=== PATIENT | female | born 1990 | race American Indian/Alaskan Native ===

== ENCOUNTER 2018-03-01 12:15 | Inpatient (IN) | payer OTHER, MEDICAID ==
[2018-03-01] MEDS: Sodium Chloride 0.9% 10 ML Syringe FLUSH PRN (13:12)
[2018-03-01 13:17] LABS: CHLORIDE,CL 98 mmol/L (101-111); SODIUM,NA 131 mmol/L (135-145)
[2018-03-01] MEDS ORDERED: Morphine 2 MG/ML Syringe IVPUSH ONE (13:36)
[2018-03-01] MEDS ORDERED: Ondansetron 4 MG/2 ML SDV IV ONE (13:36)
[2018-03-01] MEDS ORDERED: Iopamidol 755 Mg/ML 100 ML Bottle IVPUSH ONE (13:36)
[2018-03-01] MEDS ORDERED: Morphine 4 MG/ML Syringe ONE (13:39)
[2018-03-01] MEDS ORDERED: Sodium Chloride 0.9% 1,000 ML IV ONE (13:46)
[2018-03-01] MEDS ORDERED: Midazolam 1 MG/ML 2 ML SDV IVPUSH ONE (13:59)
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
[2018-03-01] MEDS ORDERED: Ondansetron 4 MG Tab.DIS PO PRN (15:28)
[2018-03-01] MEDS: Albuterol/Ipratropium 3.0-0.5 MG/3 ML Neb Soln NEB SCH (16:06)
--- NOTE | 2018-03-01 16:14 | HP ---
CHIEF COMPLAINT: Fever and chills and right-sided chest and abdominal pain. HISTORY OF PRESENT ILLNESS: The patient is a 27-year-old female who is admitted through the Emergency Room because she has been complaining of right-sided chest/shoulder and right-sided abdominal pain that have been going on for the last 2 days and she mentioned that she woke up with it. She admits that she is a little bit short of breath and also had some fever and chills. She denies though any diarrhea. Denies any headache, vomiting, nor any other associated symptoms, and because of this, she came into the Emergency Room. She was evaluated and she had significantly elevated D-dimer and she had a CAT scan of the chest, PE study, and this did not show any pulmonary embolism, but it showed bilateral lower lobe infiltrates/atelectasis/pneumonia. Urinalysis all showing urinary tract infection, and because of this, she was then admitted for further evaluation and management. PAST MEDICAL HISTORY: Remarkable for chronic anemia, otherwise unremarkable. FAMILY HISTORY: Noncontributory. SOCIAL HISTORY: The patient admits that she smokes cigarettes and also some marijuana, but denies any illicit drug use and denies any alcohol abuse. REVIEW OF SYSTEMS: As in HPI. The rest of the review of systems is negative. HOME MEDICATIONS: None. PHYSICAL EXAMINATION: General: The patient is alert and oriented, in [id number] distress from the shoulder pain and right-sided abdominal pain. Vital Signs: Blood pressure is 97/71, pulse of 109, respirations of 24. HEENT: There are pale palpebral conjunctivae. Sclerae anicteric. No JVD. No lymphadenopathy. Heart: Regular. Slightly tachycardic, but no gallops, no rubs, no significant murmurs. Lungs: Diminished breath sounds on both bases with faint crackles in both lower lung jalloh. No wheezing. Abdomen: Soft. There is moderate direct tenderness diffusely. No rebound. Extremities: Negative for any calf tenderness. No significant pedal edema. No signs of cellulitis. LABORATORY DATA: CBC: WBC 18, hemoglobin is 9.2, hematocrit is 31.1, platelet is 294. D-dimer is 2140. Comprehensive Metabolic Panel: Sodium is 131, chloride of 98, glucose is 110. The rest of the panel is unremarkable. Urinalysis is remarkable for positive nitrite and 20 to 30 wbc's and many bacteria. Urine drug screen is positive for opiates and oxycodone and methamphetamine. CAT scan of the chest, abdomen, and pelvis showed generalized poor inspiratory effort with bilateral lower lobe atelectasis/infiltrates, but not thrombus noted. There is some free fluid in the dependent cul-de-sac. No abdominal mass, lesion, retroperitoneal lymphadenopathy, mechanical bowel obstruction, or free air. ADMITTING DIAGNOSES: 1. Systemic inflammatory response syndrome. 2. Bilateral lower lobe pneumonia. 3. Urinary tract infection. 4. Hyponatremia and hypochloremia. TREATMENT PLAN: The patient is going to be admitted to General Medicine Floor. She will be started empirically on IV antibiotics, IV Levaquin. She will be given IV fluids. Blood cultures will be sent as well as urine culture. The rest of the management as necessary. [facility] /[id number]
[2018-03-01] MEDS: Acetaminophen/oxyCODONE 325-5 MG Tab PO PRN ×2 (16:31→21:37)
[2018-03-01] MEDS: Levofloxacin/Dextrose 5%-Water 500 MG in Premix Bag 1 BAG IV SCH (16:32)
[2018-03-01] MEDS: Sodium Chloride 0.9% 1,000 ML IV SCH (19:30)
[2018-03-01] MEDS: Ibuprofen 200 MG Tab PO PRN (20:09)
[2018-03-02] MEDS: Acetaminophen/oxyCODONE 325-5 MG Tab PO PRN ×6 (02:19→23:32)
[2018-03-02] MEDS: Albuterol/Ipratropium 3.0-0.5 MG/3 ML Neb Soln NEB SCH ×4 (03:38→22:45)
[2018-03-02] MEDS: Sodium Chloride 0.9% 1,000 ML IV SCH (03:56)
[2018-03-02] MEDS: Ibuprofen 200 MG Tab PO PRN ×3 (04:12→20:52)
[2018-03-02 07:10] LABS: ANION GAP 9.5; CHLORIDE,CL 106 mmol/L (101-111); SODIUM,NA 137 mmol/L (135-145)
[2018-03-02] MEDS: Enoxaparin 40 MG/0.4 ML Syringe SUBCUT SCH (09:20)
[2018-03-02] MEDS ORDERED: Potassium Chloride 10 MEQ Tab.ER PO ONE (13:47)
[2018-03-02] MEDS: Levofloxacin/Dextrose 5%-Water 500 MG in Premix Bag 1 BAG IV SCH (15:45)
[2018-03-03] MEDS: Acetaminophen/oxyCODONE 325-5 MG Tab PO PRN ×2 (06:10→10:32)
[2018-03-03] MEDS: Albuterol/Ipratropium 3.0-0.5 MG/3 ML Neb Soln NEB SCH ×2 (07:27→15:12)
[2018-03-03] MEDS: Ibuprofen 200 MG Tab PO PRN (08:07)
[2018-03-03] MEDS: Enoxaparin 40 MG/0.4 ML Syringe SUBCUT SCH (08:09)
[2018-03-03 08:23] LABS: ANION GAP 10.8; CHLORIDE,CL 105 mmol/L (101-111); SODIUM,NA 136 mmol/L (135-145)
[2018-03-03] MEDS: Sodium Chloride 0.9% 10 ML Syringe FLUSH PRN (08:53)
[2018-03-03] MEDS: Piperacillin/Tazobactam 3.375 GM in Sodium Chloride 0.9% 100 ML IV SCH ×2 (08:54→14:05)
--- NOTE | 2018-03-03 09:11 | PN ---
DATE: 03/02/2018 SUBJECTIVE: Ms. Estevez is a 27-year-old female seen today for continued hospitalization. The patient was admitted because of bilateral pneumonia and urinary tract infection. She continues to cough but nonproductive. She still has some right-sided pain which correlates with the findings of the pneumonia. Able to tolerate meals. No nausea. No diarrhea. OBJECTIVE: Vital Signs: Latest blood pressure 103/48, heart rate of 90 beats per minute, respirations 18 breaths per minute, oxygenation 100%, and temperature 98.8. General Appearance: Awake, in distress. Chest: Symmetric chest expansion. Lungs: Bilateral air entry. Decreased breath sounds in the right lower base. Abdomen: Soft. Normoactive bowel sounds. Extremities: No edema. Good pulses. LABORATORY DATA: Reviewed. ASSESSMENT AND PLAN: Given the sudden drop of the hemoglobin, also there is a drop of the WBC and platelets, repeat a CBC, most likely dilutional. The patient reports history of anemia in the past, unsure as to the cause. LMP was around 3 to 4 weeks ago. It is still in the anemic side, we will workup for the anemia. For the hypokalemia, replace the potassium with K-Dur at one time. Repeat potassium. For the bilateral pneumonia, we will continue with IV Levaquin and await final urine culture. We will also have the patient to do incentive spirometry. We will continue to follow up the patient in the medical- surgical bed. [facility] /[id number]
[2018-03-03 14:38] VITALS: BP 120/83
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
== END 2018-03-03 15:45 | disposition home or self-care (01) | DRG 871 ==
LOC: DL.ED 12:15 → UNDOADMIN 15:03 → DL.MS 15:03
PROVIDERS: ADMIT Internal Medicine; ATTEND Internal Medicine
DX: A41.9 Sepsis, unspecified organism (principal); J18.9 Pneumonia, unspecified organism; N39.0 Urinary tract infection, site not specified; E87.1 Hypo-osmolality and hyponatremia; E87.8 Other disorders of electrolyte and fluid balance, not elsewhere classified; E11.9 Type 2 diabetes mellitus without complications; D63.8 Anemia in other chronic diseases classified elsewhere; F17.210 Nicotine dependence, cigarettes, uncomplicated; E87.6 Hypokalemia; F15.90 Other stimulant use, unspecified, uncomplicated; Z79.899 Other long term (current) drug therapy; Z98.1 Arthrodesis status; F12.90 Cannabis use, unspecified, uncomplicated; B96.20 Unspecified Escherichia coli [E. coli] as the cause of diseases classified elsewhere
CPT/HCPCS: 36415; 71260; 74177; 80053; 80305; 81001; 81025; 82150; 83690; 85025; 85379; 87086; 87088; 87186; 96361; 96374; 96375; 99285; G0480; J2250; J2270; J2405; J7030; J7050; Q9967 ×2; 80048; 82728; 83540; 83550; 87040; 94640; 94760; 99284; A9270-GY; J1650; J1956; J2543; J7620-GY

== ENCOUNTER 2019-03-09 20:46 | Emergency (ER) | payer MEDICAID, OTHER ==
[2019-03-09 21:36] LABS: ANION GAP 12.2; CHLORIDE,CL 107 mmol/L (101-111); SODIUM,NA 139 mmol/L (135-145)
[2019-03-09] MEDS: Ondansetron 4 MG/2 ML SDV IV ONE (22:03)
[2019-03-09] MEDS: HYDROmorphone 1 MG/ML Syringe IVPUSH ONE (22:03)
[2019-03-09] MEDS: LORazepam 0.5 MG Tab PO ONE (22:08)
[2019-03-09] MEDS: HYDROmorphone 1 MG/ML Syringe IM ONE (22:09)
[2019-03-09] MEDS: Ondansetron 4 MG Tab.DIS PO ONE (22:09)
[2019-03-09 23:07] VITALS: BP 117/74
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
== END 2019-03-09 23:27 | disposition home or self-care (01) ==
LOC: DL.ED 20:46
DX: S00.83XA Contusion of other part of head, initial encounter (principal); M54.6 Pain in thoracic spine; Y04.2XXA Assault by strike against or bumped into by another person, initial encounter
CPT/HCPCS: 36415; 70450; 70480; 72125; 72128; 80053; 80305-QW; 84703; 85025; 96372; 99284-25; A9270-GY; G0480; J1170

== ENCOUNTER 2019-04-24 14:59 | Inpatient (IN) | payer MEDICAID, OTHER ==
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
[2019-04-24] MEDS ORDERED: Sodium Chloride 0.9% 10 ML Syringe FLUSH PRN ×2 (15:08→15:15)
[2019-04-24] MEDS ORDERED: Morphine 4 MG/ML Syringe IVPUSH ONE (15:09)
[2019-04-24] MEDS ORDERED: Lactated Ringers 1,000 ML IV ONE (15:09)
[2019-04-24] MEDS ORDERED: Ondansetron 4 MG/2 ML SDV IV ONE (15:09)
[2019-04-24] MEDS ORDERED: Acetaminophen 325 MG Tab PO ONE (15:10)
[2019-04-24] MEDS ORDERED: diphenhydrAMINE 50 MG/ML SDV IVPUSH ONE (15:14)
[2019-04-24] MEDS ORDERED: Meropenem Premix 1 GM in Premix Bag 1 BAG IV ONE (15:21)
[2019-04-24 16:36] LABS: ANION GAP 12.3; CHLORIDE,CL 98 mmol/L (101-111); SODIUM,NA 130 mmol/L (135-145)
[2019-04-24] MEDS ORDERED: Iopamidol 612 MG/ML 100 ML Bottle IVPUSH ONE (16:49)
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
[2019-04-24] MEDS: Acetaminophen 325 MG Tab PO PRN (20:12)
[2019-04-24] MEDS: Piperacillin/Tazobactam 4.5 GM in Sodium Chloride 0.9% 100 ML IV SCH (20:12)
[2019-04-24] MEDS: Lactated Ringers 1,000 ML IV SCH (20:13)
[2019-04-24] MEDS: Ibuprofen 600 MG Tab PO PRN (21:46)
[2019-04-25] MEDS: Piperacillin/Tazobactam 4.5 GM in Sodium Chloride 0.9% 100 ML IV SCH ×5 (01:59→23:31)
[2019-04-25] MEDS: Lactated Ringers 1,000 ML IV SCH ×2 (04:15→17:11)
[2019-04-25] MEDS: Pantoprazole 40 MG Tab.CR PO SCH (06:29)
[2019-04-25] MEDS: Ibuprofen 600 MG Tab PO PRN ×3 (06:32→22:11)
[2019-04-25] MEDS: Acetaminophen 325 MG Tab PO PRN ×3 (06:32→18:27)
[2019-04-25 07:53] LABS: ANION GAP 11.6; CHLORIDE,CL 103 mmol/L (101-111); SODIUM,NA 138 mmol/L (135-145)
[2019-04-25] MEDS: Potassium Chloride 10 MEQ Tab.ER PO SCH ×2 (09:55→17:10)
[2019-04-25] MEDS ORDERED: Piperacillin/Tazobactam 4.5 GM in Sodium Chloride 0.9% 100 ML IV SCH (09:56)
[2019-04-25] MEDS: Enoxaparin 40 MG/0.4 ML Syringe SUBCUT SCH (09:58)
--- NOTE | 2019-04-25 10:12 | PCM.PN ---
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 She presented to the ED via EMS c/o tender swelling, redness to the RLE. She was admitted for extensive cellulitis to RLE. CT of the RLE was negative for necrotizing fascitis but was showed extensive cellulitis. patient received IV Vanco in the ED. She was started on broad spectrum abx. This morning patient was seen and examined. She reports pain to the RLE. She thinks she the RLE redness and swelling is better. She denies fever and chills. No N/V. Over night blisters had developed over the RLE close to te ankles. Functional Status: Reports: Pain Controlled - Review of Systems General: Reports: No Symptoms HEENT: Reports: No Symptoms Pulmonary: Reports: No Symptoms Cardiovascular: Reports: No Symptoms Gastrointestinal: Reports: No Symptoms Genitourinary: Reports: No Symptoms Skin: Reports: No Symptoms, Other (Redness, swelling to RLE improving. Still c/ o pain. ) Neurological: Reports: No Symptoms Psychiatric: Reports: No Symptoms - Patient Data Vitals - Most Recent: Last Vital Signs Temp 98.4 F 04/25/19 07:48 Pulse 80 04/25/19 07:48 Resp 18 04/25/19 07:48 BP 97/48 L 04/25/19 07:48 Pulse Ox 100 04/25/19 07:48 Weight - Most Recent: 185 lb 8 oz I&O - Last 24 Hours: Intake & Output 04/24/19 04/25/19 04/25/19 22:59 06:59 14:59 Intake Total 350 Balance 350 Lab Results Last 24 Hours: Laboratory Results - last 24 hr 04/24/19 04/24/19 04/24/19 Range/Units 15:58 15:58 15:58 WBC 7.0 (5.0-10.0) 10^3/uL RBC 4.43 (4.2-5.4) 10^6/uL Hgb 9.7 L (12.0-16.0) g/dL Hct 30.9 L (37.0-47.0) % MCV 69.8 L (80-100) fL MCH 21.9 L (27.0-34.0) pg MCHC 31.4 L (33.0-35.0) g/dL Plt Count 184 D (150-450) 10^3/uL Neut % (Auto) 77.3 H (42.2-75.2) % Lymph % (Auto) 13.6 L (20.5-50.1) % [place] % (Auto) 8.9 H (2-8) % Eos % (Auto) 0.1 L (1.0-3.0) % Baso % (Auto) 0.1 (0.0-1.0) % Sodium 130 L (135-145) mmol/L Potassium 3.3 L (3.6-5.0) mmol/L Chloride 98 L (101-111) mmol/L Carbon Dioxide 23.0 (21.0-31.0) mmol/L Anion Gap 12.3 BUN 8 (7-18) mg/dL Creatinine 0.4 L (0.6-1.3) mg/dL Est Cr Clr Drug Dosing 180.81 mL/min Estimated GFR (MDRD) > 60 BUN/Creatinine Ratio 20.00 Glucose 106 H (74-105) mg/dL Lactic Acid 0.9 (0.5-2.2) mmol/L Calcium 8.2 L (8.4-10.2) mg/dl Total Bilirubin 0.6 (0.2-1.0) mg/dL AST 21 (10-42) IU/L ALT 27 (10-60) IU/L Alkaline Phosphatase 87 (42-121) IU/L C-Reactive Protein (0.0-1.3) mg/dL Total Protein 7.6 (6.7-8.2) g/dl Albumin 3.0 L (3.2-5.5) g/dl Globulin 4.6 Albumin/Globulin Ratio 0.65 HCG, Qual Urine Color (YELLOW) Urine Appearance (CLEAR) Urine pH (5.0-9.0) Ur Specific Oto (1.005-1.030) Urine Protein (NEGATIVE) Urine Glucose (UA) (NEGATIVE) Urine Ketones (NEGATIVE) Urine Occult Blood (NEGATIVE) Urine Nitrite (NEGATIVE) Urine Bilirubin (NEGATIVE) Urine Urobilinogen (0.2-1.0) mg/dL Ur Leukocyte Esterase (NEGATIVE) Urine RBC /HPF Urine WBC (0-5/HPF) /HPF Ur Epithelial Cells (NOT SEEN) /HPF Urine Bacteria (0-FEW/HPF) /HPF Urine Opiates Screen (NEGATIVE) Ur Oxycodone Screen (NEGATIVE) Urine Methadone Screen (NEGATIVE) Ur Barbiturates Screen (NEGATIVE) U Tricyclic Antidepress (NEGATIVE) Ur Phencyclidine Scrn (NEGATIVE) Ur Amphetamine Screen (NEGATIVE) U Methamphetamines Scrn (NEGATIVE) Urine MDMA Screen (NEGATIVE) U Benzodiazepines Scrn (NEGATIVE) Urine Cocaine Screen (NEGATIVE) U Marijuana (THC) Screen (NEGATIVE) 04/24/19 04/24/19 04/24/19 Range/Units 15:58 15:58 18:34 WBC (5.0-10.0) 10^3/uL RBC (4.2-5.4) 10^6/uL Hgb (12.0-16.0) g/dL Hct (37.0-47.0) % MCV (80-100) fL MCH (27.0-34.0) pg MCHC (33.0-35.0) g/dL Plt Count (150-450) 10^3/uL Neut % (Auto) (42.2-75.2) % Lymph % (Auto) (20.5-50.1) % [place] % (Auto) (2-8) % Eos % (Auto) (1.0-3.0) % Baso % (Auto) (0.0-1.0) % Sodium (135-145) mmol/L Potassium (3.6-5.0) mmol/L Chloride (101-111) mmol/L Carbon Dioxide (21.0-31.0) mmol/L Anion Gap BUN (7-18) mg/dL Creatinine (0.6-1.3) mg/dL Est Cr Clr Drug Dosing mL/min Estimated GFR (MDRD) BUN/Creatinine Ratio Glucose (74-105) mg/dL Lactic Acid (0.5-2.2) mmol/L Calcium (8.4-10.2) mg/dl Total Bilirubin (0.2-1.0) mg/dL AST (10-42) IU/L ALT (10-60) IU/L Alkaline Phosphatase (42-121) IU/L C-Reactive Protein 19.1 H (0.0-1.3) mg/dL Total Protein (6.7-8.2) g/dl Albumin (3.2-5.5) g/dl Globulin Albumin/Globulin Ratio HCG, Qual Negative Urine Color (YELLOW) Urine Appearance (CLEAR) Urine pH (5.0-9.0) Ur Specific Oto (1.005-1.030) Urine Protein (NEGATIVE) Urine Glucose (UA) (NEGATIVE) Urine Ketones (NEGATIVE) Urine Occult Blood (NEGATIVE) Urine Nitrite (NEGATIVE) Urine Bilirubin (NEGATIVE) Urine Urobilinogen (0.2-1.0) mg/dL Ur Leukocyte Esterase (NEGATIVE) Urine RBC /HPF Urine WBC (0-5/HPF) /HPF Ur Epithelial Cells (NOT SEEN) /HPF Urine Bacteria (0-FEW/HPF) /HPF Urine Opiates Screen Positive H (NEGATIVE) Ur Oxycodone Screen Negative (NEGATIVE) Urine Methadone Screen Negative (NEGATIVE) Ur Barbiturates Screen Negative (NEGATIVE) U Tricyclic Antidepress Negative (NEGATIVE) Ur Phencyclidine Scrn Negative (NEGATIVE) Ur Amphetamine Screen Positive H (NEGATIVE) U Methamphetamines Scrn Positive H (NEGATIVE) Urine MDMA Screen Negative (NEGATIVE) U Benzodiazepines Scrn Negative (NEGATIVE) Urine Cocaine Screen Negative (NEGATIVE) U Marijuana (THC) Screen Negative (NEGATIVE) 04/24/19 04/24/19 04/25/19 Range/Units 18:38 19:32 07:20 WBC 6.5 (5.0-10.0) 10^3/uL RBC 4.09 L (4.2-5.4) 10^6/uL Hgb 9.0 L (12.0-16.0) g/dL Hct 28.6 L (37.0-47.0) % MCV 69.9 L (80-100) fL MCH 22.0 L (27.0-34.0) pg MCHC 31.5 L (33.0-35.0) g/dL Plt Count 150 (150-450) 10^3/uL Neut % (Auto) 68.4 (42.2-75.2) % Lymph % (Auto) 17.2 L (20.5-50.1) % [place] % (Auto) 9.6 H (2-8) % Eos % (Auto) 4.6 H (1.0-3.0) % Baso % (Auto) 0.2 (0.0-1.0) % Sodium 138 (135-145) mmol/L Potassium 3.6 (3.6-5.0) mmol/L Chloride 103 (101-111) mmol/L Carbon Dioxide 27.0 (21.0-31.0) mmol/L Anion Gap 11.6 BUN 10 (7-18) mg/dL Creatinine 0.5 L (0.6-1.3) mg/dL Est Cr Clr Drug Dosing 144.65 mL/min Estimated GFR (MDRD) > 60 BUN/Creatinine Ratio Glucose 106 H (74-105) mg/dL Lactic Acid (0.5-2.2) mmol/L Calcium 8.0 L (8.4-10.2) mg/dl Total Bilirubin (0.2-1.0) mg/dL AST (10-42) IU/L ALT (10-60) IU/L Alkaline Phosphatase (42-121) IU/L C-Reactive Protein (0.0-1.3) mg/dL Total Protein (6.7-8.2) g/dl Albumin (3.2-5.5) g/dl Globulin Albumin/Globulin Ratio HCG, Qual Urine Color Yellow (YELLOW) Urine Appearance Cloudy (CLEAR) Urine pH 6.0 (5.0-9.0) Ur Specific Oto 1.025 (1.005-1.030) Urine Protein 100 H (NEGATIVE) Urine Glucose (UA) Negative (NEGATIVE) Urine Ketones Negative (NEGATIVE) Urine Occult Blood Small H (NEGATIVE) Urine Nitrite Negative (NEGATIVE) Urine Bilirubin Negative (NEGATIVE) Urine Urobilinogen 4.0 H (0.2-1.0) mg/dL Ur Leukocyte Esterase Small H (NEGATIVE) Urine RBC 5-10 H /HPF Urine WBC >100 H (0-5/HPF) /HPF Ur Epithelial Cells Moderate H (NOT SEEN) /HPF Urine Bacteria Many H (0-FEW/HPF) /HPF Urine Opiates Screen (NEGATIVE) Ur Oxycodone Screen (NEGATIVE) Urine Methadone Screen (NEGATIVE) Ur Barbiturates Screen (NEGATIVE) U Tricyclic Antidepress (NEGATIVE) Ur Phencyclidine Scrn (NEGATIVE) Ur Amphetamine Screen (NEGATIVE) U Methamphetamines Scrn (NEGATIVE) Urine MDMA Screen (NEGATIVE) U Benzodiazepines Scrn (NEGATIVE) Urine Cocaine Screen (NEGATIVE) U Marijuana (THC) Screen (NEGATIVE) Etienne Results Last 24 Hours: Microbiology 04/24/19 15:40 Anaerobic Blood Culture - Final Blood - Venous Med Orders - Current: Current Medications Acetaminophen (Tylenol) 650 mg PO Q6H PRN PRN Reason: Pain (Mild 1-3)/fever Last Admin: 04/25/19 06:32 Dose: 650 mg Enoxaparin Sodium (Lovenox) 40 mg SUBCUT DAILY [facility] Last Admin: 04/25/19 09:58 Dose: Not Given Lactated Ringer's (Ringers, Lactated) 1,000 mls @ 125 mls/hr IV ASDIRECTED [facility] Last Admin: 04/25/19 04:15 Dose: 125 mls/hr Vancomycin HCl 1 gm/ Sodium (Chloride) 250 mls @ 166.667 mls/hr IV Q8H [facility] Last Admin: 04/25/19 09:57 Dose: 166.667 mls/hr Piperacillin Sod/Tazobactam (Sod 4.5 gm/ Sodium Chloride) 100 mls @ 200 mls/hr IV Q6H [facility] Ibuprofen (Motrin) 600 mg PO Q8H PRN PRN Reason: right leg pain Last Admin: 04/25/19 06:32 Dose: 600 mg Pantoprazole Sodium (Protonix) 40 mg PO ACBREAKFAST [facility] Last Admin: 04/25/19 06:29 Dose: 40 mg Potassium Chloride (Klor-Con 10) 40 meq PO BIDMEALS [facility] Last Admin: 04/25/19 09:55 Dose: 40 meq Sodium Chloride (Saline Flush) 10 ml FLUSH ASDIRECTED PRN PRN Reason: Keep Vein Open Sodium Chloride (Saline Flush) 10 ml FLUSH ASDIRECTED PRN PRN Reason: Keep Vein Open Vancomycin HCl (Pharmacy To Dose - Vancomycin) 1 dose .XX ASDIRECTED [facility] Discontinued Medications Acetaminophen (Tylenol) 650 mg PO NOW ONE Stop: 04/24/19 15:11 Last Admin: 04/24/19 16:29 Dose: 650 mg Diphenhydramine HCl (Benadryl) 25 mg IVPUSH ONETIME ONE Stop: 04/24/19 15:15 Last Admin: 04/24/19 16:26 Dose: 25 mg Lactated Ringer's (Ringers, Lactated) 1,000 mls @ 999 mls/hr IV .BOLUS ONE Stop: 04/24/19 16:09 Last Infusion: 04/24/19 20:17 Dose: Infused Vancomycin HCl 1.25 gm/ Sodium (Chloride) 250 mls @ 167 mls/hr IV ONETIME ONE Stop: 04/24/19 16:43 Last Admin: 04/24/19 16:22 Dose: 167 mls/hr Meropenem/Sodium Chloride 1 gm (/ Premix) 50 mls @ 100 mls/hr IV ONETIME ONE Stop: 04/24/19 15:50 Last Admin: 04/24/19 19:43 Dose: Not Given Piperacillin Sod/Tazobactam (Sod 4.5 gm/ Sodium Chloride) 100 mls @ 200 mls/hr IV Q6H [facility] Last Admin: 04/25/19 09:08 Dose: 200 mls/hr Piperacillin Sod/Tazobactam (Sod 4.5 gm/ Sodium Chloride) 100 mls @ 200 mls/hr IV Q6H [facility] Iopamidol (Isovue-300 (61%)) 100 ml IVPUSH ONETIME ONE Stop: 04/24/19 16:50 Last Admin: 04/24/19 16:59 Dose: 100 ml Morphine Sulfate (Morphine) 4 mg IVPUSH ONETIME ONE Stop: 04/24/19 15:10 Last Admin: 04/24/19 16:27 Dose: 4 mg Ondansetron HCl (Zofran) 4 mg IV ONETIME ONE Stop: 04/24/19 15:10 Last Admin: 04/24/19 16:24 Dose: 4 mg - Exam Quality Assessment: DVT Prophylaxis General: Alert, Oriented HEENT: Pupils Equal, Pupils Reactive, EOMI, Mucous Membr. Moist/[place] Neck: Supple Lungs: Clear to Auscultation, Normal Respiratory Effort Cardiovascular: Regular Rate, Regular Rhythm GI/Abdominal Exam: Normal Bowel Sounds, Soft, Non-Tender, No Organomegaly, No Distention, No Abnormal Bruit, No Mass, Pelvis Stable (Female) Exam: Normal External Exam, Normal Speculum Exam, Normal Bimanual Exam Back Exam: Normal Inspection, Full Range of Motion Extremities: Increased Warmth, Redness, Other (Redness, swelling, tenderness. Blister to the lower aspect of RLE noted close to ankle.) Skin: Warm, Dry, Intact Wound/Incisions: Healing Well Neurological: No New Focal Deficit Psy/Mental Status: Alert, Normal Affect, Normal Mood - Problem List & Annotations (1) Cellulitis of right lower extremity SNOMED Code(s): 910075124 Code(s): L03.115 - CELLULITIS OF RIGHT LOWER LIMB Status: Acute Current Visit: No - Problem List Review Problem List Initiated/Reviewed/Updated: Yes - My Orders Last 24 Hours: My Active Orders 04/24/19 19:15 Ambulate [RC] ASDIRECTED Oxygen Therapy [RC] PRN VTE/DVT Education [RC] PER UNIT ROUTINE Vital Signs [RC] Q4HR Acetaminophen [Tylenol] 650 mg PO Q6H PRN Lactated Ringers [Ringers, Lactated] 1,000 ml IV ASDIRECTED Res[facility] Status Routine 04/24/19 19:16 Intake and Output [RC] QSHIFT Notify Provider Vital Signs [RC] ASDIRECTED 04/24/19 19:30 Pharmacy to Dose - Vancomycin 1 dose .XX ASDIRECTED 04/24/19 19:49 Ibuprofen [Motrin] 600 mg PO Q8H PRN 04/24/19 19:50 Communication Order [RC] PER UNIT ROUTINE 04/24/19 Dinner Regular Diet [DIET] 04/25/19 00:00 Vancomycin 1 gm Sodium Chloride 0.9% [Normal Saline] 250 ml IV Q8H 04/25/19 06:00 Pantoprazole [ProTONIX] 40 mg PO ACBREAKFAST 04/25/19 08:00 Potassium Chloride [Klor-Con 10] 40 meq PO BIDMEALS 04/25/19 09:00 Enoxaparin [Lovenox] 40 mg SUBCUT DAILY 04/25/19 12:00 Piperacillin/Tazobactam [Zosyn] 4.5 gm Sodium Chloride 0.9% [Normal Saline] 100 ml IV Q6H - Plan Plan:: #RLE cellulitis -CT of RLE showed extensive cellulitis without necrotizing fascitis -Appears improving -IVF -Continue IV Vanco and Zosyn for now -Adequate pain control with Motrin and Tylenol. -Place RLE on pillow -Awaiting RLE venous US to r/o DVT -Send for A1c #Anemia -H&H stable -Send for anemia work up #Hyponatremia -Resolved #Hypokalemia -Resolved #H/o of IVD abuse -Patient says she is been clean for the past 2 months #Regular diet #Full code
[2019-04-25] MEDS ORDERED: traMADol 50 MG Tab PO ONE (14:20)
[2019-04-25] MEDS: Melatonin 3 MG Tab PO PRN (23:31)
[2019-04-26] MEDS ORDERED: Vancomycin 1 GM, Vancomycin 250 MG in Sodium Chloride 0.9% 250 ML IV SCH ×3
[2019-04-26] MEDS: Acetaminophen 325 MG Tab PO PRN ×3 (00:24→16:41)
[2019-04-26] MEDS: Pantoprazole 40 MG Tab.CR PO SCH (06:15)
[2019-04-26] MEDS: Ibuprofen 600 MG Tab PO PRN ×2 (06:15→16:33)
[2019-04-26 06:26] LABS: CHLORIDE,CL 110 mmol/L (101-111); SODIUM,NA 141 mmol/L (135-145)
[2019-04-26] MEDS: Piperacillin/Tazobactam 4.5 GM in Sodium Chloride 0.9% 100 ML IV SCH ×4 (06:33→23:39)
[2019-04-26] MEDS: Lactated Ringers 1,000 ML IV SCH ×2 (08:15→20:32)
[2019-04-26] MEDS: Potassium Chloride 10 MEQ Tab.ER PO SCH ×2 (08:15→18:31)
[2019-04-26] MEDS: Enoxaparin 40 MG/0.4 ML Syringe SUBCUT SCH (08:16)
[2019-04-26] MEDS ORDERED: Sodium Chloride 0.9% 10 ML Syringe FLUSH PRN (08:58)
--- NOTE | 2019-04-26 10:07 | PCM.PN ---
- General Info Date of Service: 04/26/19 Admission Dx/Problem (Free Text): Admission Diagnosis/Problem Admission Diagnosis/Problem RLE Cellulitis Subjective Update: Hanna is 29 y/o F with PMH of IVD abuse (Meth.) but says she is been clean for the past 2 weeks. She presented to the ED via EMS c/o tender swelling, redness to the RLE. She was admitted for extensive cellulitis to RLE. CT of the RLE was negative for necrotizing fascitis but was showed extensive cellulitis. patient received IV Vanco in the ED. She was started on broad spectrum abx. This morning patient was seen and examined. No acute event overnight. RLE redness and swelling improving. Fluid filled blisters over the RLE close to the ankles. RLE venous US negative for DVT. She denies fever and chills. No N/V. She is unable to ambulate due to pain. I requested for PT/OT Functional Status: Reports: Pain Controlled - Review of Systems General: Reports: No Symptoms HEENT: Reports: No Symptoms Pulmonary: Reports: No Symptoms Cardiovascular: Reports: No Symptoms Gastrointestinal: Reports: No Symptoms Genitourinary: Reports: No Symptoms Musculoskeletal: Reports: No Symptoms, Other (Pain, redness and swelling to RLE ) Skin: Reports: No Symptoms Neurological: Reports: No Symptoms Psychiatric: Reports: No Symptoms - Patient Data Vitals - Most Recent: Last Vital Signs Temp 98.4 F 04/26/19 07:41 Pulse 89 04/26/19 07:41 Resp 18 04/26/19 07:41 BP 100/62 04/26/19 07:41 Pulse Ox 99 04/26/19 07:41 Weight - Most Recent: 185 lb 8 oz I&O - Last 24 Hours: Intake & Output 04/25/19 04/26/19 04/26/19 22:59 06:59 14:59 Intake Total 9849 390 4942 Balance 1670 816 7747 Lab Results Last 24 Hours: Laboratory Results - last 24 hr 04/25/19 04/26/19 Range/Units 23:30 05:52 Sodium 141 (135-145) mmol/L Potassium 4.0 (3.6-5.0) mmol/L Chloride 110 (101-111) mmol/L Carbon Dioxide 24.0 (21.0-31.0) mmol/L Anion Gap 11.0 BUN 16 (7-18) mg/dL Creatinine 0.4 L (0.6-1.3) mg/dL Est Cr Clr Drug Dosing 180.81 mL/min Estimated GFR (MDRD) > 60 Glucose 101 (74-105) mg/dL Calcium 7.9 L (8.4-10.2) mg/dl Vancomycin Trough 8.2 L (10-15) ug/ml Etienne Results Last 24 Hours: Microbiology 04/24/19 18:38 Urine Culture - Final Urine, Clean Catch Escherichia Coli 04/24/19 15:40 Aerobic Blood Culture - Preliminary Blood - Venous NO GROWTH AFTER 1 DAY Anaerobic Blood Culture - Final 04/24/19 15:58 Aerobic Blood Culture - Preliminary Blood - Venous - Lab Draw NO GROWTH AFTER 1 DAY Anaerobic Blood Culture - Preliminary NO GROWTH AFTER 1 DAY Med Orders - Current: Current Medications Acetaminophen (Tylenol) 650 mg PO Q6H PRN PRN Reason: Pain (Mild 1-3)/fever Last Admin: 04/26/19 06:16 Dose: 650 mg Enoxaparin Sodium (Lovenox) 40 mg SUBCUT DAILY [facility] Last Admin: 04/26/19 08:16 Dose: Not Given Piperacillin Sod/Tazobactam (Sod 4.5 gm/ Sodium Chloride) 100 mls @ 200 mls/hr IV Q6H [facility] Last Admin: 04/26/19 06:33 Dose: 200 mls/hr Lactated Ringer's (Ringers, Lactated) 1,000 mls @ 100 mls/hr IV ASDIRECTED [facility] Last Admin: 04/26/19 08:15 Dose: 100 mls/hr Vancomycin HCl 1.25 gm/ Sodium (Chloride) 250 mls @ 166.667 mls/hr IV Q8H [facility] Last Admin: 04/26/19 08:14 Dose: 166.667 mls/hr Ibuprofen (Motrin) 600 mg PO Q8H PRN PRN Reason: right leg pain Last Admin: 04/26/19 06:15 Dose: 600 mg Melatonin (Melatonin) 3 mg PO BEDTIME PRN PRN Reason: Insomnia Last Admin: 04/25/19 23:31 Dose: 3 mg Pantoprazole Sodium (Protonix) 40 mg PO ACBREAKFAST [facility] Last Admin: 04/26/19 06:15 Dose: 40 mg Potassium Chloride (Klor-Con 10) 40 meq PO BIDMEALS [facility] Last Admin: 04/26/19 08:15 Dose: 40 meq Sodium Chloride (Saline Flush) 10 ml FLUSH ASDIRECTED PRN PRN Reason: Keep Vein Open Vancomycin HCl (Pharmacy To Dose - Vancomycin) 1 dose .XX ASDIRECTED [facility] Discontinued Medications Acetaminophen (Tylenol) 650 mg PO NOW ONE Stop: 04/24/19 15:11 Last Admin: 04/24/19 16:29 Dose: 650 mg Diphenhydramine HCl (Benadryl) 25 mg IVPUSH ONETIME ONE Stop: 04/24/19 15:15 Last Admin: 04/24/19 16:26 Dose: 25 mg Lactated Ringer's (Ringers, Lactated) 1,000 mls @ 999 mls/hr IV .BOLUS ONE Stop: 04/24/19 16:09 Last Infusion: 04/24/19 20:17 Dose: Infused Vancomycin HCl 1.25 gm/ Sodium (Chloride) 250 mls @ 167 mls/hr IV ONETIME ONE Stop: 04/24/19 16:43 Last Admin: 04/24/19 16:22 Dose: 167 mls/hr Meropenem/Sodium Chloride 1 gm (/ Premix) 50 mls @ 100 mls/hr IV ONETIME ONE Stop: 04/24/19 15:50 Last Admin: 04/24/19 19:43 Dose: Not Given Lactated Ringer's (Ringers, Lactated) 1,000 mls @ 125 mls/hr IV ASDIRECTED [facility] Last Infusion: 04/25/19 17:11 Dose: Infused Piperacillin Sod/Tazobactam (Sod 4.5 gm/ Sodium Chloride) 100 mls @ 200 mls/hr IV Q6H [facility] Last Admin: 04/25/19 09:08 Dose: 200 mls/hr Vancomycin HCl 1 gm/ Sodium (Chloride) 250 mls @ 166.667 mls/hr IV Q8H [facility] Last Admin: 04/25/19 16:35 Dose: 166.667 mls/hr Piperacillin Sod/Tazobactam (Sod 4.5 gm/ Sodium Chloride) 100 mls @ 200 mls/hr IV Q6H [facility] Iopamidol (Isovue-300 (61%)) 100 ml IVPUSH ONETIME ONE Stop: 04/24/19 16:50 Last Admin: 04/24/19 16:59 Dose: 100 ml Morphine Sulfate (Morphine) 4 mg IVPUSH ONETIME ONE Stop: 04/24/19 15:10 Last Admin: 04/24/19 16:27 Dose: 4 mg Ondansetron HCl (Zofran) 4 mg IV ONETIME ONE Stop: 04/24/19 15:10 Last Admin: 04/24/19 16:24 Dose: 4 mg Sodium Chloride (Saline Flush) 10 ml FLUSH ASDIRECTED PRN PRN Reason: Keep Vein Open Sodium Chloride (Saline Flush) 10 ml FLUSH ASDIRECTED PRN PRN Reason: Keep Vein Open Tramadol HCl (Ultram) 50 mg PO ONETIME ONE Stop: 04/25/19 14:21 Last Admin: 04/25/19 14:26 Dose: 50 mg - Exam Quality Assessment: DVT Prophylaxis General: Alert, Oriented HEENT: Pupils Equal, Pupils Reactive, EOMI, Mucous Membr. Moist/[place] Neck: Supple Lungs: Clear to Auscultation, Normal Respiratory Effort Cardiovascular: Regular Rate, Regular Rhythm GI/Abdominal Exam: Normal Bowel Sounds, Soft, Non-Tender, No Organomegaly, No Distention, No Abnormal Bruit, No Mass, Pelvis Stable (Female) Exam: Normal External Exam, Normal Speculum Exam, Normal Bimanual Exam Back Exam: Normal Inspection, Full Range of Motion Extremities: No Pedal Edema, Normal Capillary Refill, Leg Pain, Redness ( Swelling, redness, tenderness to RLE improving. Fluid filled blisters noted) Skin: Warm, Dry, Intact Wound/Incisions: Healing Well Neurological: No New Focal Deficit Psy/Mental Status: Alert, Normal Affect, Normal Mood - Problem List & Annotations (1) Cellulitis of right lower extremity SNOMED Code(s): 123869845 Code(s): L03.115 - CELLULITIS OF RIGHT LOWER LIMB Status: Acute Current Visit: No - Problem List Review Problem List Initiated/Reviewed/Updated: Yes - My Orders Last 24 Hours: My Active Orders 04/25/19 11:30 Lactated Ringers [Ringers, Lactated] 1,000 ml IV ASDIRECTED 04/25/19 12:00 Piperacillin/Tazobactam [Zosyn] 4.5 gm Sodium Chloride 0.9% [Normal Saline] 100 ml IV Q6H 04/25/19 22:21 Melatonin 3 mg PO BEDTIME PRN 04/26/19 00:00 Vancomycin 1.25 gm Sodium Chloride 0.9% [Normal Saline] 250 ml IV Q8H 04/26/19 08:58 Sodium Chloride 0.9% [Saline Flush] 10 ml FLUSH ASDIRECTED PRN 04/26/19 09:51 PT Evaluation and Treatment [CONS] Routine 04/26/19 09:52 OT Evaluation and Treatment [CONS] Routine 04/27/19 07:00 BASIC METABOLIC PANEL,BMP [CHEM] DAILY CBC WITH AUTO DIFF [HEME] DAILY 04/28/19 07:00 BASIC METABOLIC PANEL,BMP [CHEM] DAILY CBC WITH AUTO DIFF [HEME] DAILY 04/29/19 07:00 CBC WITH AUTO DIFF [HEME] DAILY - Plan Plan:: #Extensive RLE cellulitis -CT of RLE showed extensive cellulitis without necrotizing fascitis -Improving -IVF -Continue current abx -Adequate pain control with Motrin and Tylenol. -Place RLE on pillow -RLE venous US negative for DVT #Anemia -H&H stable #Hyponatremia -Resolved #Hypokalemia -Resolved #H/o of IVD abuse -Patient says she is been clean for the past 2 months #Regular diet #Full code
[2019-04-26] MEDS ORDERED: traMADol 50 MG Tab PO ONE (17:57)
[2019-04-27] MEDS: Acetaminophen 325 MG Tab PO PRN ×3 (01:14→17:56)
[2019-04-27] MEDS: Melatonin 3 MG Tab PO PRN (01:15)
[2019-04-27] MEDS: Ibuprofen 600 MG Tab PO PRN ×2 (06:14→16:08)
[2019-04-27] MEDS: Pantoprazole 40 MG Tab.CR PO SCH (06:14)
[2019-04-27] MEDS: Piperacillin/Tazobactam 4.5 GM in Sodium Chloride 0.9% 100 ML IV SCH (06:16)
[2019-04-27 08:05] LABS: ANION GAP 11.9; CHLORIDE,CL 105 mmol/L (101-111); SODIUM,NA 138 mmol/L (135-145)
[2019-04-27] MEDS: Potassium Chloride 10 MEQ Tab.ER PO SCH ×2 (08:16→17:33)
[2019-04-27] MEDS: Enoxaparin 40 MG/0.4 ML Syringe SUBCUT SCH (08:17)
[2019-04-27] MEDS: Lactated Ringers 1,000 ML IV SCH (08:18)
[2019-04-27] MEDS: Ferrous Sulfate 325 MG Tab PO SCH (10:21)
--- NOTE | 2019-04-27 11:37 | PCM.PN ---
- General Info Date of Service: 04/27/19 Admission Dx/Problem (Free Text): Admission Diagnosis/Problem Admission Diagnosis/Problem RLE Cellulitis Subjective Update: Hanna is 29 y/o F with PMH of IVD abuse (Meth.) but says she is been clean for the past 2 weeks. She presented to the ED via EMS c/o tender swelling, redness to the RLE. She was admitted for extensive cellulitis to RLE. CT of the RLE was negative for necrotizing fascitis but was showed extensive cellulitis. patient received IV Vanco in the ED. She was started on broad spectrum abx. This morning patient was seen and examined. No acute event overnight. RLE redness and swelling improving. Fluid filled blisters over the RLE close to the ankles still present. She denies fever and chills. No N/V. Patient ambulating with walker. Functional Status: Reports: Pain Controlled - Review of Systems General: Reports: No Symptoms HEENT: Reports: No Symptoms Pulmonary: Reports: No Symptoms Cardiovascular: Reports: No Symptoms Gastrointestinal: Reports: No Symptoms Genitourinary: Reports: No Symptoms Musculoskeletal: Reports: No Symptoms Skin: Reports: No Symptoms Neurological: Reports: No Symptoms Psychiatric: Reports: No Symptoms - Patient Data Vitals - Most Recent: Last Vital Signs Temp 98.6 F 04/27/19 11:19 Pulse 85 04/27/19 11:19 Resp 18 04/27/19 11:19 BP 110/63 04/27/19 11:19 Pulse Ox 100 04/27/19 11:19 Weight - Most Recent: 185 lb 8 oz I&O - Last 24 Hours: Intake & Output 04/26/19 04/27/19 04/27/19 22:59 06:59 14:59 Intake Total 610 2421 Output Total 650 Balance 610 1771 Lab Results Last 24 Hours: Laboratory Results - last 24 hr 04/25/19 04/26/19 04/26/19 Range/Units 07:20 05:52 05:52 WBC (5.0-10.0) 10^3/uL RBC (4.2-5.4) 10^6/uL Hgb (12.0-16.0) g/dL Hct (37.0-47.0) % MCV (80-100) fL MCH (27.0-34.0) pg MCHC (33.0-35.0) g/dL Plt Count (150-450) 10^3/uL Neut % (Auto) (42.2-75.2) % Lymph % (Auto) (20.5-50.1) % Hill % (Auto) (2-8) % Eos % (Auto) (1.0-3.0) % Baso % (Auto) (0.0-1.0) % Sodium (135-145) mmol/L Potassium (3.6-5.0) mmol/L Chloride (101-111) mmol/L Carbon Dioxide (21.0-31.0) mmol/L Anion Gap BUN (7-18) mg/dL Creatinine (0.6-1.3) mg/dL Est Cr Clr Drug Dosing mL/min Estimated GFR (MDRD) Glucose (74-105) mg/dL Estimat Average Glucose 120 mg/dl Hemoglobin A1c 5.8 (4.4-6.3) % Calcium (8.4-10.2) mg/dl Iron <10 L (35-145) ug/dL TIBC N/a H (261-478) ug/dL Unsaturated IBC 237 (155-355) ug/dL Transferrin % Sat N/a H (20.0-50.0) % Ferritin 136 (11-307) ng/mL Vitamin B12 276 (180-914) pg/mL Folate ng/mL Vancomycin Trough (10-15) ug/ml 04/26/19 04/27/19 04/27/19 Range/Units 05:52 07:35 07:35 WBC 8.1 (5.0-10.0) 10^3/uL RBC 3.71 L (4.2-5.4) 10^6/uL Hgb 8.1 L (12.0-16.0) g/dL Hct 26.4 L (37.0-47.0) % MCV 71.2 L (80-100) fL MCH 21.8 L (27.0-34.0) pg MCHC 30.7 L (33.0-35.0) g/dL Plt Count 336 D (150-450) 10^3/uL Neut % (Auto) 66.1 (42.2-75.2) % Lymph % (Auto) 26.4 (20.5-50.1) % Hill % (Auto) 6.4 (2-8) % Eos % (Auto) 1.0 (1.0-3.0) % Baso % (Auto) 0.1 (0.0-1.0) % Sodium 138 (135-145) mmol/L Potassium 3.9 (3.6-5.0) mmol/L Chloride 105 (101-111) mmol/L Carbon Dioxide 25.0 (21.0-31.0) mmol/L Anion Gap 11.9 BUN 5 L (7-18) mg/dL Creatinine 0.5 L (0.6-1.3) mg/dL Est Cr Clr Drug Dosing 144.65 mL/min Estimated GFR (MDRD) > 60 Glucose 97 (74-105) mg/dL Estimat Average Glucose mg/dl Hemoglobin A1c (4.4-6.3) % Calcium 8.2 L (8.4-10.2) mg/dl Iron (35-145) ug/dL TIBC (261-478) ug/dL Unsaturated IBC (155-355) ug/dL Transferrin % Sat (20.0-50.0) % Ferritin (11-307) ng/mL Vitamin B12 (180-914) pg/mL Folate 5.2 ng/mL Vancomycin Trough (10-15) ug/ml 04/27/19 Range/Units 07:35 WBC (5.0-10.0) 10^3/uL RBC (4.2-5.4) 10^6/uL Hgb (12.0-16.0) g/dL Hct (37.0-47.0) % MCV (80-100) fL MCH (27.0-34.0) pg MCHC (33.0-35.0) g/dL Plt Count (150-450) 10^3/uL Neut % (Auto) (42.2-75.2) % Lymph % (Auto) (20.5-50.1) % Hill % (Auto) (2-8) % Eos % (Auto) (1.0-3.0) % Baso % (Auto) (0.0-1.0) % Sodium (135-145) mmol/L Potassium (3.6-5.0) mmol/L Chloride (101-111) mmol/L Carbon Dioxide (21.0-31.0) mmol/L Anion Gap BUN (7-18) mg/dL Creatinine (0.6-1.3) mg/dL Est Cr Clr Drug Dosing mL/min Estimated GFR (MDRD) Glucose (74-105) mg/dL Estimat Average Glucose mg/dl Hemoglobin A1c (4.4-6.3) % Calcium (8.4-10.2) mg/dl Iron (35-145) ug/dL TIBC (261-478) ug/dL Unsaturated IBC (155-355) ug/dL Transferrin % Sat (20.0-50.0) % Ferritin (11-307) ng/mL Vitamin B12 (180-914) pg/mL Folate ng/mL Vancomycin Trough 11.4 (10-15) ug/ml Etienne Results Last 24 Hours: Microbiology 04/24/19 15:40 Aerobic Blood Culture - Preliminary Blood - Venous NO GROWTH AFTER 2 DAYS Anaerobic Blood Culture - Final 04/24/19 15:58 Aerobic Blood Culture - Preliminary Blood - Venous - Lab Draw NO GROWTH AFTER 2 DAYS Anaerobic Blood Culture - Preliminary NO GROWTH AFTER 2 DAYS 04/24/19 18:38 Urine Culture - Final Urine, Clean Catch Escherichia Coli Med Orders - Current: Current Medications Acetaminophen (Tylenol) 650 mg PO Q6H PRN PRN Reason: Pain (Mild 1-3)/fever Last Admin: 04/27/19 10:43 Dose: 650 mg Enoxaparin Sodium (Lovenox) 40 mg SUBCUT DAILY [facility] Last Admin: 04/27/19 08:17 Dose: Not Given Ferrous Sulfate (Ferrous Sulfate) 325 mg PO WITHBREAKFAST [facility] Last Admin: 04/27/19 10:21 Dose: 325 mg Vancomycin HCl 1.25 gm/ Sodium (Chloride) 250 mls @ 166.667 mls/hr IV Q8H [facility] Last Admin: 04/27/19 08:14 Dose: 166 mls/hr Ibuprofen (Motrin) 600 mg PO Q8H PRN PRN Reason: Pain (moderate 4-6)/right leg Last Admin: 04/27/19 06:14 Dose: 600 mg Melatonin (Melatonin) 3 mg PO BEDTIME PRN PRN Reason: Insomnia Last Admin: 04/27/19 01:15 Dose: 3 mg Pantoprazole Sodium (Protonix) 40 mg PO ACBREAKFAST [facility] Last Admin: 04/27/19 06:14 Dose: 40 mg Potassium Chloride (Klor-Con 10) 40 meq PO BIDMEALS [facility] Last Admin: 04/27/19 08:16 Dose: Not Given Sodium Chloride (Saline Flush) 10 ml FLUSH ASDIRECTED PRN PRN Reason: Keep Vein Open Vancomycin HCl (Pharmacy To Dose - Vancomycin) 1 dose .XX ASDIRECTED SHAHANA Discontinued Medications Acetaminophen (Tylenol) 650 mg PO NOW ONE Stop: 04/24/19 15:11 Last Admin: 04/24/19 16:29 Dose: 650 mg Diphenhydramine HCl (Benadryl) 25 mg IVPUSH ONETIME ONE Stop: 04/24/19 15:15 Last Admin: 04/24/19 16:26 Dose: 25 mg Lactated Ringer's (Ringers, Lactated) 1,000 mls @ 999 mls/hr IV .BOLUS ONE Stop: 04/24/19 16:09 Last Infusion: 04/24/19 20:17 Dose: Infused Vancomycin HCl 1.25 gm/ Sodium (Chloride) 250 mls @ 167 mls/hr IV ONETIME ONE Stop: 04/24/19 16:43 Last Admin: 04/24/19 16:22 Dose: 167 mls/hr Meropenem/Sodium Chloride 1 gm (/ Premix) 50 mls @ 100 mls/hr IV ONETIME ONE Stop: 04/24/19 15:50 Last Admin: 04/24/19 19:43 Dose: Not Given Lactated Ringer's (Ringers, Lactated) 1,000 mls @ 125 mls/hr IV ASDIRECTED [facility] Last Infusion: 04/25/19 17:11 Dose: Infused Piperacillin Sod/Tazobactam (Sod 4.5 gm/ Sodium Chloride) 100 mls @ 200 mls/hr IV Q6H [facility] Last Admin: 04/25/19 09:08 Dose: 200 mls/hr Vancomycin HCl 1 gm/ Sodium (Chloride) 250 mls @ 166.667 mls/hr IV Q8H [facility] Last Admin: 04/25/19 16:35 Dose: 166.667 mls/hr Piperacillin Sod/Tazobactam (Sod 4.5 gm/ Sodium Chloride) 100 mls @ 200 mls/hr IV Q6H [facility] Piperacillin Sod/Tazobactam (Sod 4.5 gm/ Sodium Chloride) 100 mls @ 200 mls/hr IV Q6H [facility] Last Admin: 04/27/19 06:16 Dose: 200 mls/hr Lactated Ringer's (Ringers, Lactated) 1,000 mls @ 100 mls/hr IV ASDIRECTED SHAHANA Last Admin: 04/27/19 08:18 Dose: 100 mls/hr Iopamidol (Isovue-300 (61%)) 100 ml IVPUSH ONETIME ONE Stop: 04/24/19 16:50 Last Admin: 04/24/19 16:59 Dose: 100 ml Morphine Sulfate (Morphine) 4 mg IVPUSH ONETIME ONE Stop: 04/24/19 15:10 Last Admin: 04/24/19 16:27 Dose: 4 mg Ondansetron HCl (Zofran) 4 mg IV ONETIME ONE Stop: 04/24/19 15:10 Last Admin: 04/24/19 16:24 Dose: 4 mg Sodium Chloride (Saline Flush) 10 ml FLUSH ASDIRECTED PRN PRN Reason: Keep Vein Open Sodium Chloride (Saline Flush) 10 ml FLUSH ASDIRECTED PRN PRN Reason: Keep Vein Open Tramadol HCl (Ultram) 50 mg PO ONETIME ONE Stop: 04/25/19 14:21 Last Admin: 04/25/19 14:26 Dose: 50 mg Tramadol HCl (Ultram) 50 mg PO ONETIME ONE Stop: 04/26/19 17:58 Last Admin: 04/26/19 18:30 Dose: 50 mg - Exam Quality Assessment: DVT Prophylaxis General: Alert, Oriented HEENT: Pupils Equal, Pupils Reactive, EOMI, Mucous Membr. Moist/[place] Neck: Supple Lungs: Clear to Auscultation, Normal Respiratory Effort Cardiovascular: Regular Rate, Regular Rhythm GI/Abdominal Exam: Normal Bowel Sounds, Soft, Non-Tender, No Organomegaly, No Distention, No Abnormal Bruit, No Mass, Pelvis Stable (Female) Exam: Normal External Exam, Normal Speculum Exam, Normal Bimanual Exam Back Exam: Normal Inspection, Full Range of Motion Extremities: Normal Inspection, Normal Range of Motion, Non-Tender, No Pedal Edema, Normal Capillary Refill Skin: Warm, Dry, Intact Wound/Incisions: Healing Well Neurological: No New Focal Deficit Psy/Mental Status: Alert, Normal Affect, Normal Mood - Problem List & Annotations (1) Cellulitis of right lower extremity SNOMED Code(s): 472845806 Code(s): L03.115 - CELLULITIS OF RIGHT LOWER LIMB Status: Acute Current Visit: No (2) Anemia SNOMED Code(s): 523582737 Code(s): D64.9 - ANEMIA, UNSPECIFIED Status: Acute Current Visit: No Qualifiers: Anemia type: iron deficiency - Problem List Review Problem List Initiated/Reviewed/Updated: Yes - My Orders Last 24 Hours: My Active Orders 04/27/19 09:15 Ferrous Sulfate 325 mg PO WITHBREAKFAST 04/28/19 07:00 BASIC METABOLIC PANEL,BMP [CHEM] DAILY CBC WITH AUTO DIFF [HEME] DAILY 04/28/19 15:30 VANCOMYCIN TROUGH [CHEM] Timed 04/29/19 07:00 CBC WITH AUTO DIFF [HEME] DAILY - Plan Plan:: #Extensive RLE cellulitis -CT of RLE showed extensive cellulitis without necrotizing fascitis -Improving -D/c IVF -Continue IV Vanco. D/c Zosyn -Pain control with Motrin and Tylenol. -Place RLE on pillow -RLE venous US negative for DVT -PT/OT #Microcytic anemia due to iron deficiency. -H&H stable -Ferrous sulfate #Hyponatremia -Resolved #Hypokalemia -Resolved #H/o of IVD abuse -Patient says she is been clean for the past 2 months #Regular diet #Full code
[2019-04-27] MEDS: traMADol 50 MG Tab PO PRN (19:15)
[2019-04-28] MEDS: traMADol 50 MG Tab PO PRN ×3 (02:32→15:41)
[2019-04-28] MEDS: Ibuprofen 600 MG Tab PO PRN (03:56)
[2019-04-28] MEDS: Pantoprazole 40 MG Tab.CR PO SCH (05:39)
[2019-04-28 07:14] LABS: ANION GAP 12.8; CHLORIDE,CL 106 mmol/L (101-111); SODIUM,NA 140 mmol/L (135-145)
[2019-04-28] MEDS: Potassium Chloride 10 MEQ Tab.ER PO SCH (08:29)
[2019-04-28] MEDS: Acetaminophen 325 MG Tab PO PRN (08:29)
[2019-04-28] MEDS: Ferrous Sulfate 325 MG Tab PO SCH (08:29)
[2019-04-28] MEDS: Enoxaparin 40 MG/0.4 ML Syringe SUBCUT SCH (08:31)
[2019-04-28] MEDS ORDERED: Sodium Chloride 0.9% 1,000 ML IV SCH (12:00)
[2019-04-28] MEDS ORDERED: Morphine 2 MG/ML Syringe IVPUSH STA (13:11)
--- NOTE | 2019-04-28 15:45 | PCM.DCSUM1 ---
Discharge Summary - Hospital Course Free Text/Narrative:: 29 -year-old female with PMHx of IV drug abuse (Meth. Last used 2 months ago), anemia, questionable history of MRSA at [facility] (per patient ) who presented to emergency room on 04/24/19 for tender swelling, redness of right lower extremity extending from ankle to mid thigh with large blisters in lower leg and difficulty bearing weight on her right leg, started 2 days prior to admission. She admitted to subjective fever, sweats and chills. On admission WBC 7.0K. Hemoglobin 9.7. CRP 19.1. Quantitative HCG urine negative. Urine drug screen positive for opiates, amphetamine and methamphetamine. CT of the leg was negative for necrotizing fasciitis but reported extensive cellulitis. Ultrasound Doppler was negative for DVT. Patient was started on Zosyn and vancomycin. 2 aerobic and anaerobic Blood cultures reported no growth after 3 days. On 04/27 Zosyn was discontinued and vancomycin was trough 11.4. Today WBC 8.3K. She is still on vancomycin. Today she has been complaining of worsening right lower extremity pain and swelling in addition to know right knee swelling , pain, and limited range of motion but improvement in leg redness. She is still not able to bear weight on right leg. She has not had elevated temperature. She has been refusing her Lovenox. Ultrasound Doppler was repeated today and reported no DVT. However reported soft tissue edema at's changes with a small amount of fluid present. On exam right lower extremity reveals retracting of redness in regard to the marking lines however there is marked tenderness and swelling from mid thigh to the foot. There is marked swelling of the right knee with limited range of motion. Urine culture was done on admission and grew E coli however patient denies any urinary symptoms. Diagnosis: Stroke: No - Discharge Data Discharge Date: 04/28/19 Discharge Disposition: DC/Tfer to Acute Hospital 02 Condition: Serious - Referral to Home Health Primary Care Physician: PCP Unobtainable - Discharge Diagnosis/Problem(s) (1) Swelling of right knee joint SNOMED Code(s): 528132583 ICD Code: M25.461 - EFFUSION, RIGHT KNEE Status: Acute Current Visit: Yes (2) Anemia SNOMED Code(s): 930338060 ICD Code: D64.9 - ANEMIA, UNSPECIFIED Status: Chronic Current Visit: No Qualifiers: Anemia type: iron deficiency (3) Cellulitis of right lower extremity SNOMED Code(s): 836169564 ICD Code: L03.115 - CELLULITIS OF RIGHT LOWER LIMB Status: Acute Current Visit: No - Patient Summary/Data Consults: Consultations 04/26/19 09:51 PT Evaluation and Treatment [CONS] Routine 04/26/19 09:52 OT Evaluation and Treatment [CONS] Routine - Discharge Plan *PRESCRIPTION DRUG MONITORING PROGRAM REVIEWED*: No *COPY OF PRESCRIPTION DRUG MONITORING REPORT IN PATIENT JULIETTE: No Home Medications: Home Meds Ibuprofen [Advil Liqui-Gels] 600 mg PO Q4H PRN 03/01/18 [History] Forms: ED Department Discharge Referrals: PCP,Unobtain [Primary Care Provider] - - Discharge Summary/Plan Comment DC Time >30 min.: Yes (35 minutes were spent counseling, discharging and coordinating the transfer) - General Info Date of Service: 04/28/19 Admission Dx/Problem (Free Text: Admission Diagnosis/Problem Admission Diagnosis/Problem RLE Cellulitis Subjective Update: Patient denies headache, respiratory symptoms, shortness breath, cough, chest pain, abdominal pain, diarrhea, dysuria, urinary frequency, blood in the urine, blood in stool, black stool, unilateral weakness/numbness/tingling, or any other symptoms or concern other than what mentioned above - Patient Data Vitals - Most Recent: Last Vital Signs Temp 36.9 C 04/28/19 11:32 Pulse 86 04/28/19 11:32 Resp 18 04/28/19 11:32 BP 107/57 L 04/28/19 11:32 Pulse Ox 99 04/28/19 11:32 Weight - Most Recent: 84.141 kg I&O - Last 24 hours: Intake & Output 04/28/19 04/28/19 04/28/19 06:59 14:59 22:59 Intake Total 1270 300 Balance 1270 300 Lab Results - Last 24 hrs: Laboratory Results - last 24 hr 04/28/19 04/28/19 Range/Units 06:22 06:22 WBC 8.3 (5.0-10.0) 10^3/uL RBC 3.86 L (4.2-5.4) 10^6/uL Hgb 8.4 L (12.0-16.0) g/dL Hct 27.7 L (37.0-47.0) % MCV 71.8 L (80-100) fL MCH 21.8 L (27.0-34.0) pg MCHC 30.3 L (33.0-35.0) g/dL Plt Count 410 (150-450) 10^3/uL Neut % (Auto) 59.8 (42.2-75.2) % Lymph % (Auto) 30.1 (20.5-50.1) % Graham % (Auto) 7.7 (2-8) % Eos % (Auto) 2.3 (1.0-3.0) % Baso % (Auto) 0.1 (0.0-1.0) % Sodium 140 (135-145) mmol/L Potassium 3.8 (3.6-5.0) mmol/L Chloride 106 (101-111) mmol/L Carbon Dioxide 25.0 (21.0-31.0) mmol/L Anion Gap 12.8 BUN 13 (7-18) mg/dL Creatinine 0.5 L (0.6-1.3) mg/dL Est Cr Clr Drug Dosing 144.65 mL/min Estimated GFR (MDRD) > 60 Glucose 101 (74-105) mg/dL Calcium 8.4 (8.4-10.2) mg/dl AMILCAR Results - Last 24 hrs: Microbiology 04/24/19 15:40 Aerobic Blood Culture - Preliminary Blood - Venous NO GROWTH AFTER 3 DAYS Anaerobic Blood Culture - Final 04/24/19 15:58 Aerobic Blood Culture - Preliminary Blood - Venous - Lab Draw NO GROWTH AFTER 3 DAYS Anaerobic Blood Culture - Preliminary NO GROWTH AFTER 3 DAYS Med Orders - Current: Current Medications Acetaminophen (Tylenol) 650 mg PO Q6H PRN PRN Reason: Pain (Mild 1-3)/fever Last Admin: 04/28/19 08:29 Dose: 650 mg Enoxaparin Sodium (Lovenox) 40 mg SUBCUT DAILY [facility] Last Admin: 04/28/19 08:31 Dose: Not Given Ferrous Sulfate (Ferrous Sulfate) 325 mg PO WITHBREAKFAST [facility] Last Admin: 04/28/19 08:29 Dose: 325 mg Vancomycin HCl 1.25 gm/ Sodium (Chloride) 250 mls @ 166.667 mls/hr IV Q8H [facility] Last Infusion: 04/28/19 13:22 Dose: Infused Sodium Chloride (Normal Saline) 1,000 mls @ 50 mls/hr IV CONTINUOUS SHAHANA Last Admin: 04/28/19 13:21 Dose: 50 mls/hr Ibuprofen (Motrin) 600 mg PO Q8H PRN PRN Reason: Pain (moderate 4-6)/right leg Last Admin: 04/28/19 03:56 Dose: 600 mg Melatonin (Melatonin) 3 mg PO BEDTIME PRN PRN Reason: Insomnia Last Admin: 04/27/19 01:15 Dose: 3 mg Pantoprazole Sodium (Protonix) 40 mg PO ACBREAKFAST SHAHANA Last Admin: 04/28/19 05:39 Dose: 40 mg Potassium Chloride (Klor-Con 10) 40 meq PO BIDMEALS [facility] Last Admin: 04/28/19 08:29 Dose: 40 meq Sodium Chloride (Saline Flush) 10 ml FLUSH ASDIRECTED PRN PRN Reason: Keep Vein Open Tramadol HCl (Ultram) 50 mg PO Q4H PRN PRN Reason: Pain Last Admin: 04/28/19 10:21 Dose: 50 mg Vancomycin HCl (Pharmacy To Dose - Vancomycin) 1 dose .XX ASDIRECTED SHAHANA Discontinued Medications Acetaminophen (Tylenol) 650 mg PO NOW ONE Stop: 04/24/19 15:11 Last Admin: 04/24/19 16:29 Dose: 650 mg Diphenhydramine HCl (Benadryl) 25 mg IVPUSH ONETIME ONE Stop: 04/24/19 15:15 Last Admin: 04/24/19 16:26 Dose: 25 mg Lactated Ringer's (Ringers, Lactated) 1,000 mls @ 999 mls/hr IV .BOLUS ONE Stop: 04/24/19 16:09 Last Infusion: 04/24/19 20:17 Dose: Infused Vancomycin HCl 1.25 gm/ Sodium (Chloride) 250 mls @ 167 mls/hr IV ONETIME ONE Stop: 04/24/19 16:43 Last Admin: 04/24/19 16:22 Dose: 167 mls/hr Meropenem/Sodium Chloride 1 gm (/ Premix) 50 mls @ 100 mls/hr IV ONETIME ONE Stop: 04/24/19 15:50 Last Admin: 04/24/19 19:43 Dose: Not Given Lactated Ringer's (Ringers, Lactated) 1,000 mls @ 125 mls/hr IV ASDIRECTED [facility] Last Infusion: 04/25/19 17:11 Dose: Infused Piperacillin Sod/Tazobactam (Sod 4.5 gm/ Sodium Chloride) 100 mls @ 200 mls/hr IV Q6H [facility] Last Admin: 04/25/19 09:08 Dose: 200 mls/hr Vancomycin HCl 1 gm/ Sodium (Chloride) 250 mls @ 166.667 mls/hr IV Q8H [facility] Last Admin: 04/25/19 16:35 Dose: 166.667 mls/hr Piperacillin Sod/Tazobactam (Sod 4.5 gm/ Sodium Chloride) 100 mls @ 200 mls/hr IV Q6H [facility] Piperacillin Sod/Tazobactam (Sod 4.5 gm/ Sodium Chloride) 100 mls @ 200 mls/hr IV Q6H [facility] Last Admin: 04/27/19 06:16 Dose: 200 mls/hr Lactated Ringer's (Ringers, Lactated) 1,000 mls @ 100 mls/hr IV ASDIRECTED [facility] Last Admin: 04/27/19 08:18 Dose: 100 mls/hr Iopamidol (Isovue-300 (61%)) 100 ml IVPUSH ONETIME ONE Stop: 04/24/19 16:50 Last Admin: 04/24/19 16:59 Dose: 100 ml Morphine Sulfate (Morphine) 4 mg IVPUSH ONETIME ONE Stop: 04/24/19 15:10 Last Admin: 04/24/19 16:27 Dose: 4 mg Morphine Sulfate (Morphine) 2 mg IVPUSH ONETIME STA Stop: 04/28/19 13:12 Last Admin: 04/28/19 13:20 Dose: 2 mg Ondansetron HCl (Zofran) 4 mg IV ONETIME ONE Stop: 04/24/19 15:10 Last Admin: 04/24/19 16:24 Dose: 4 mg Sodium Chloride (Saline Flush) 10 ml FLUSH ASDIRECTED PRN PRN Reason: Keep Vein Open Sodium Chloride (Saline Flush) 10 ml FLUSH ASDIRECTED PRN PRN Reason: Keep Vein Open Tramadol HCl (Ultram) 50 mg PO ONETIME ONE Stop: 04/25/19 14:21 Last Admin: 04/25/19 14:26 Dose: 50 mg Tramadol HCl (Ultram) 50 mg PO ONETIME ONE Stop: 04/26/19 17:58 Last Admin: 04/26/19 18:30 Dose: 50 mg - Exam General: Reports: Alert, Oriented, Cooperative, No Acute Distress. Denies: Severe Distress, Sedated, Lethargic, Obtunded HEENT: Reports: Pupils Equal, Pupils Reactive, EOMI, Mucous Membr. Moist/[place] Neck: Reports: Supple Lungs: Reports: Clear to Auscultation, Normal Respiratory Effort Cardiovascular: Reports: Regular Rate, Regular Rhythm GI/Abdominal Exam: Normal Bowel Sounds, Soft, Non-Tender, No Organomegaly, No Distention, No Abnormal Bruit, No Mass (Female) Exam: Deferred Rectal (Female) Exam: Deferred Back Exam: Reports: Normal Inspection, Full Range of Motion Extremities: Normal Capillary Refill, Other (Luiz right lower extremity swelling and tenderness with large blisters above the ankle. Right dorsalis pedalis is palpable. She has limited range of motion in right knee and ankle. Right toes color is normal. Rest of extremities normal.) Neurological: Reports: No New Focal Deficit Psy/Mental Status: Reports: Alert, Normal Affect, Normal Mood
[2019-04-28 16:14] VITALS: BP 116/63; PULSE 96
== END 2019-04-28 16:05 | DRG 603 ==
LOC: DL.ED 14:59 → DL.MS 18:39
PROVIDERS: ADMIT Student in an Organized Health Care Education/Training Program; ATTEND Family Medicine
DX: L03.115 Cellulitis of right lower limb (principal); E87.1 Hypo-osmolality and hyponatremia; E87.6 Hypokalemia; F41.9 Anxiety disorder, unspecified; F32.9 Major depressive disorder, single episode, unspecified; D50.9 Iron deficiency anemia, unspecified; Z87.891 Personal history of nicotine dependence; Z98.1 Arthrodesis status
CPT/HCPCS: 36415; 73701; 80048; 80053; 80202; 80305-QW; 81001; 82607; 82728; 82746; 83036; 83540; 83550; 83605; 84703; 85025; 86140; 87040; 87086; 87088; 87186; 93971; 96374; 96375; 97162-GP; 97165-GO; 99284; 99285-25; A9270-GY; J1200; J2270; J2405; J2543; J3370; J7030; J7050; J7120; Q9967

== ENCOUNTER 2019-06-10 13:03 | Emergency (ER) | payer MEDICAID, OTHER ==
[2019-06-10 13:09] VITALS: BP 138/75; PULSE 114
[2019-06-10 14:17] LABS: ANION GAP 12.8; CHLORIDE,CL 103 mmol/L (101-111); SODIUM,NA 137 mmol/L (135-145)
[2019-06-10] MEDS ORDERED: Ibuprofen 800 MG Tab PO ONE (14:37)
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
== END 2019-06-10 16:13 | disposition home or self-care (01) ==
LOC: DL.ED 13:03
DX: L03.115 Cellulitis of right lower limb (principal); F17.210 Nicotine dependence, cigarettes, uncomplicated
CPT/HCPCS: 36415; 80053; 83605; 85025; 87040; 87070; 87077; 87186; 96365; 96366; 99283; A9270; J3370; J7040; 99284

== ENCOUNTER 2019-08-07 20:48 | Emergency (ER) | payer MEDICAID, OTHER ==
[2019-08-07] MEDS ORDERED: Lidocaine 1% 30 ML SDV INJECT ONE (21:37)
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
[2019-08-07 21:42] VITALS: BP 118/72; PULSE 113
[2019-08-07] MEDS ORDERED: Acetaminophen/HYDROcodone 325-10 MG Tab PO ONE (22:43)
== END 2019-08-07 22:50 | disposition home or self-care (01) ==
LOC: DL.ED 20:48
DX: S02.2XXA Fracture of nasal bones, initial encounter for closed fracture (principal); Y04.2XXA Assault by strike against or bumped into by another person, initial encounter
CPT/HCPCS: 12011; 70160; 99283; A9270; J2001

== ENCOUNTER 2020-12-15 17:42 | Emergency (ER) | payer MEDICAID, OTHER ==
[2020-12-15 18:08] VITALS: BP 107/57; PULSE 108
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
--- NOTE | 2020-12-15 18:57 | CR ---
PROCEDURE INFORMATION: Exam: XR Thoracic Spine Exam date and time: 12/15/2020 6:24 PM Age: 30 years old Clinical indication: Other: Pain; Additional info: Thoracic back pain HX fracture/surgery remotely TECHNIQUE: Imaging protocol: XR of the thoracic spine. Views: 2 views. COMPARISON: CT Thoracic Spine wo Cont 03/09/2019 10:18 PM FINDINGS: Bones/joints: Posterior fixation apparatus/pedicle screws extend from T1 to T7 likely for treatment of T4 fracture. T4 and T5 appear partially fused. Probable T4 laminectomy, possible T5 laminectomy. Near anatomic alignment. No additional fracture or compression fracture seen. Bony detail in the lateral projection is limited. The pedicles are intact in the non operative segments. Soft tissues: There is no soft tissue abnormality seen. Lungs: The lungs are clear. Pleural space: No pleural effusion. No pneumothorax. Heart/Mediastinum: The heart is not enlarged. Other findings: No acute bony findings are identified. IMPRESSION: 1. Postoperative thoracic spine. 2. No acute findings. 3. Consider cross-sectional imag studiesing
== END 2020-12-15 18:50 ==
LOC: DL.ED 17:42
DX: M54.6 Pain in thoracic spine (principal); G89.29 Other chronic pain
CPT/HCPCS: 72070; 99282; 99283-25

== ENCOUNTER 2021-01-24 16:38 | Emergency (ER) | payer SELFPAY ==
[2021-01-24 17:31] VITALS: BP 128/71; PULSE 87
[2021-01-24 17:54] LABS: ANION GAP 15.7 mEq/L (7-13); CHLORIDE,CL 107 mmol/L (98-107); SODIUM,NA 143 mmol/L (136-145)
[2021-01-24 17:55] LABS: ACETAMINOPHEN 0 ug/mL (10-30 (Therapeutic))
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
[2021-01-24 18:12] LABS: AMPHETAMINES,URINE POSITIVE (NEGATIVE); BARBITURATES,URINE NEGATIVE (NEGATIVE); BENZODIAZEPINE,URINE NEGATIVE (NEGATIVE); MDMA (ECSTASY), URINE NEGATIVE (NEGATIVE); METHADONE,URINE NEGATIVE (NEGATIVE); METHAMPHETAMINES,URINE POSITIVE (NEGATIVE); OPIATES,URINE NEGATIVE (NEGATIVE); OXYCODONE,URINE NEGATIVE (NEGATIVE); PHENCYCLIDINE,URINE NEGATIVE (NEGATIVE); TCA,URINE NEGATIVE (NEGATIVE)
[2021-01-24 18:27] LABS: CORONAVIRUS COVID-19 NAA NEGATIVE (NEGATIVE)
--- NOTE | 2021-01-24 19:27 | CT ---
PROCEDURE INFORMATION: Exam: CT Maxillofacial Without Contrast Exam date and time: 01/24/2021 6:44 PM Age: 30 years old Clinical indication: Other: Facial swelling; Additional info: Short of breath, facial swelling TECHNIQUE: Imaging protocol: Computed tomography images of the face without contrast. Radiation optimization: All CT scans at this facility use at least one of these dose optimization techniques: automated exposure control; mA and/or kV adjustment per patient size (includes targeted exams where dose is matched to clinical indication); or iterative reconstruction. COMPARISON: CT Head wo Cont 03/09/2019 10:05 PM FINDINGS: Orbital cavity: Orbits are normal. Globes are unremarkable. Bones/joints: No aggressive appearing osseous lesions Paranasal sinuses: Mild diffuse mucosal thickening worst in the ethmoids. No air-fluid levels to suggest acute sinusitis. Soft tissues: There is focal fluid density seen on the left. It is situated between tongue, mandible, and maxilla. See image 22 of series 3. It measures about 16 by 17 mm. It may be secretions, but correlation with direct visualization is recommended. A submucosal abscess or fluid collection would be another possibility. Lymph nodes: A few mildly prominent cervical lymph nodes are seen. Dental: Dental disease noted. Clinical correlation recommended. Airway: There are some secretions anterior to the epiglottis in the valleculae, but the epiglottis appears normal. Piriform sinuses are open. IMPRESSION: No acute pathology. Some probable secretions are noted. Direct visualization is suggested. Mild ethmoid sinusitis appears chronic.
--- NOTE | 2021-01-24 19:28 | CR ---
PROCEDURE INFORMATION: Exam: XR Chest Exam date and time: 01/24/2021 6:49 PM Age: 30 years old Clinical indication: Shortness of breath; Prior surgery; Surgery date: 6+ months; Surgery type: T-spine surgery; Additional info: Short of breath, facial swelling TECHNIQUE: Imaging protocol: XR of the chest. Views: 1 view. COMPARISON: CR Thoracic Spine 2V 12/15/2020 6:24 PM FINDINGS: Lungs: Unremarkable. No consolidation. Pleural spaces: Unremarkable. No pleural effusion. No pneumothorax. Heart/Mediastinum: Unremarkable. No cardiomegaly. Bones/joints: Spinal hardware again noted. IMPRESSION: No acute disease
== END 2021-01-24 19:37 | disposition home or self-care (01) ==
LOC: DL.ED 16:38
DX: F15.10 Other stimulant abuse, uncomplicated (principal); F10.10 Alcohol abuse, uncomplicated; Y90.1 Blood alcohol level of 20-39 mg/100 ml; Z20.822 Contact with and (suspected) exposure to COVID-19
CPT/HCPCS: 0240U; 36415; 70486; 71045; 80053; 80143; 80179; 80305; 80307; 81025; 85025; 99284; 99283

== ENCOUNTER 2021-06-30 12:02 | Emergency (ER) | payer SELFPAY ==
[2021-06-30 12:19] VITALS: BP 118/100; PULSE 110
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
--- NOTE | 2021-06-30 12:39 | CR ---
PROCEDURE INFORMATION: Exam: XR Chest Exam date and time: 06/30/2021 12:29 PM Age: 31 years old Clinical indication: Cough and shortness of breath; Prior surgery; Surgery date: 6+ months; Surgery type: Spine surgery 5 years ago; Additional info: Cough, SOB TECHNIQUE: Imaging protocol: XR of the chest. Views: 1 view. COMPARISON: CR Chest 1V Frontal 01/24/2021 6:49 PM FINDINGS: Lungs: Unremarkable. No consolidation. Pleural spaces: Unremarkable. No pleural effusion. No pneumothorax. Heart/Mediastinum: Unremarkable. No cardiomegaly. Bones/joints: Hardware attached upper thoracic spine. IMPRESSION: No acute findings.
[2021-06-30 13:14] LABS: ANION GAP 16.7 mEq/L (7-13); CHLORIDE,CL 103 mmol/L (98-107); SODIUM,NA 139 mmol/L (136-145)
[2021-06-30 13:31] LABS: CORONAVIRUS COVID-19 NAA NEGATIVE (NEGATIVE)
== END 2021-06-30 14:13 | disposition home or self-care (01) ==
LOC: DL.ED 12:02
DX: J06.9 Acute upper respiratory infection, unspecified (principal); Z20.822 Contact with and (suspected) exposure to COVID-19
CPT/HCPCS: 0240U; 36415; 71045; 80053; 85025; 86140; 99284

== ENCOUNTER 2023-03-17 14:32 | Emergency (ER) | payer SELFPAY ==
[2023-03-17 15:00] VITALS: BP 133/64; PULSE 84
[2023-03-17 15:05] LABS: BASOPHILS PERCENT AUTO 0.6 % (0.0-1.0); EOSINOPHILS PERCENT AUTO 4.6 % (1.0-3.0); HEMATOCRIT 30.8 % (37.0-47.0); HEMOGLOBIN 9.1 g/dL (12.0-16.0); LYMPHOCYTES PERCENT AUTO 40.1 % (20.5-50.1); MEAN CORPUSCULAR HEMOGLOBIN 19.5 pg (27.0-34.0); MEAN CORPUSCULAR HGB CONC 29.5 g/dL (33.0-35.0); MEAN CORPUSCULAR VOLUME 66.1 fL (80-100); MONOCYTES PERCENT AUTO 9.3 % (2-8); NEUTROPHILS PERCENT AUTO 45.4 % (42.2-75.2); PLATELET COUNT,PLT 336 10^3/uL (150-450); RED BLOOD CELL COUNT 4.66 10^6/uL (4.2-5.4)
[2023-03-17 15:21] LABS: A/G RATIO 0.8; ALANINE AMINOTRANSFERASE,ALT 52 U/L (14-59); ALKALINE PHOSPHATASE 95 U/L (46-116); ANION GAP 15.2 mEq/L (7-13); ASPARTATE AMNIOTRANSFERASE,AST 55 U/L (15-37); BILIRUBIN TOTAL 0.7 mg/dL (0.2-1.0); BLOOD UREA NITROGEN,BUN 15 mg/dL (7-18); BUN/CREATININE RATIO 28.3 (No establ ref range); CALCIUM 9.2 mg/dL (8.5-10.1); CARBON DIOXIDE,CO2 26 mmol/L (21-32); CHLORIDE,CL 101 mmol/L (98-107); CREATININE 0.53 mg/dL (0.55-1.02); EST CRCL DRUG DOSING (CG) 132.81 mL/min; GLUCOSE RANDOM 91 mg/dL (70-99); HCG QUALITATIVE,SERUM NEGATIVE (NEGATIVE); LIPASE 80 U/L (73-393); POTASSIUM,K 4.2 mmol/L (3.5-5.1); PROTEIN TOTAL,TP 8.9 g/dL (6.4-8.2); SODIUM,NA 138 mmol/L (136-145)
[2023-03-17 15:24] LABS: ESTIMATED GFR 127 mL/min (>=60)
[2023-03-17 15:25] LABS: LACTIC ACID 1.2 mmol/L (0.4-2.0)
[2023-03-17 15:26] LABS: APPEARANCE,URINE CLEAR (CLEAR); BILIRUBIN,URINE NEGATIVE (NEGATIVE); COLOR,URINE YELLOW (YELLOW); GLUCOSE,URINE NEGATIVE (NEGATIVE); KETONES,URINE NEGATIVE (NEGATIVE); LEUKOCYTE ESTERASE,URINE SMALL (NEGATIVE); NITRITE,URINE NEGATIVE (NEGATIVE); OCCULT BLOOD,URINE NEGATIVE (NEGATIVE); PH,URINE 6.5 (5.0-9.0); PROTEIN,URINE NEGATIVE (NEGATIVE); UROBILINOGEN,URINE 0.2 mg/dL (0.2-1.0)
[2023-03-17 15:54] LABS: BACTERIA,URINE FEW /HPF (0-FEW/HPF); EPITHELIAL CELLS,URINE FEW /HPF (NOT SEEN); RBC,URINE 0-5 /HPF (0-5)
[2023-03-17] MEDS ORDERED: Sucralfate 1 GM Tab PO ONE (16:28)
[2023-03-17] MEDS ORDERED: Bisacodyl 5 MG Tab PO ONE (16:28)
== END 2023-03-17 17:04 | disposition home or self-care (01) ==
LOC: DL.ED 14:32
DX: K29.00 Acute gastritis without bleeding (principal); K59.00 Constipation, unspecified; Z79.899 Other long term (current) drug therapy
CPT/HCPCS: 36415; 74176; 80053; 81001; 83605; 83690; 84703; 85025; 87086; 99284; A9270